=== PATIENT | female | born 1945 | race Caucasian/White ===

== ENCOUNTER 2016-10-21 19:47 | Inpatient (IN) | payer MEDICARE, BC ==
[~2016-10-21 19:47] MED LIST: ACETAMINOPHEN500 M5 PO; ADVAIR HFA 1151 PUFF INH; ALLOPURINOL100 MG; ALLOPURINOL300 M1 PO; ALPRAZOLAM0.25 M3 PO; ALPRAZOLAM0.25 MG PO; ALPRAZOLAM0.5 MG PO; AMILORIDE HCL5 M1 PO; AMIODARONE HCL200 M1 PO; AMITRIPTYLINE H25 M1 PO; AMITRIPTYLINE H25 MG; AMITRIPTYLINE H25 MG PO; ANTI-DIARRHEAL2 MG PO; ARTHX DS CAPSUL1 CAP; CALCIUM 600 W/V1 TAB; CALCIUM CITRAT1 EA18 PO; CALTRATE-600/VI1 TAB; CITRUCEL; CITRUCEL POWDE454 GM PO; CITRUCEL500 M1 PO; CLONIDINE HCL0.1 MG; COUMADIN2 MG; COUMADIN3 MG; COUMADIN4 MG PO; COZAAR50 MG; COZAAR50 MG PO; CPAP; DAZIDOX20 MG; GABAPENTIN300 M1 PO; GLIPIZIDE5 M2 PO; GLUCOSAMINE CH1 EAC1 PO; GLUCOSAMINE CHO1 TA1; GLUCOSAMINE-CH1 EA35 PO; ISOSORBIDE MONO60 MG; KLOR-CON 1010 ME1 PO; KLOR-CON M10 MEQ/TAB PO; LEVSIN0.125 MG; LOPERAMIDE2 M2 PO; LOPERAMIDE2 MG; LOPRESSOR25 MG/TA1 PO; LORTAB 2.5/5001 TAB; LOVENOX30 MG/0.3 SQ; MECLIZINE HCL25 MG; METHYLCELLULOSE; METOLAZONE5 M1 PO; METOPROLOL SUCC25 M1 PO; MORPHINE SU15 MG/TAB PO; MS CONTIN30 M1 PO; MS CONTIN30 MG PO; MULTIVITAMIN1 TAB PO; MULTIVITAMINS1 EAC6 PO; NEURONTIN300 MG; NIACIN50 PO; NIACIN500 M1 PO; OMEPRAZOLE20 M2 PO; OMEPRAZOLE20 MG PO; OMEPRAZOLE40 M2 PO; OXYCODONE HCL20 MG; PACERONE100 MG PO; PERCOCET 5MG/AP1 TA1 PO; POTASSIUM CHLO10 MEQ PO; POTASSIUM CHLO20 MEQ; PROTONIX40 MG; SERTRALINE HCL50 M4 PO; SERTRALINE HCL50 MG PO; SPIRONOLACTONE25 M2 PO; SPIRONOLACTONE50 MG; SULFAMETHOXAZO1 EAC5 PO; TAMBOCOR100 MG; TOPROL XL50 M1 PO; TORSEMIDE100 M1 PO; TORSEMIDE100 MG; TORSEMIDE100 MG PO; TYLENOL EXTRA500 MG PO; TYLENOL500 MG; TYLENOL500 MG PO; VENTOLIN HFA18 G2 IH; VERAPAMIL HCL240 M; VERAPAMIL HCL240 MG; VITAMIN D1000 UNI2 PO; WARFARIN SODIUM PO; ZOLOFT50 M1 PO
[2016-10-21] MEDS ORDERED: NORVASC2.5 M1 PO (20:37)
[2016-10-21] MEDS ORDERED: MUCINEX600 M1 PO (20:38)
[2016-10-21] MEDS ORDERED: NITROSTAT0.4 M1 SL (20:39)
[2016-10-21] MEDS ORDERED: CENTRUM SILVER1 EAC6 PO (20:40)
[2016-10-21] MEDS ORDERED: CLARITIN PO (20:41)
[2016-10-21] MEDS ORDERED: CYMBALTA60 M1 PO (20:41)
[2016-10-21] MEDS ORDERED: LOPERAMIDE2 M2 PO (20:42)
[2016-10-21] MEDS ORDERED: INCRUSE ELLI62.5 MCG INH (20:42)
[2016-10-21] MEDS ORDERED: AMIODARONE HCL200 M1 PO (20:43)
[2016-10-21] MEDS ORDERED: POTASSIUM CHLO10 ME2 PO (20:43)
[2016-10-21 21:34] LABS: ABG CO2 ARTERIAL 22 mmol/L (21-27); ARTERIAL BLD GAS O2 SATURATION 93 % (95-98); ARTERIAL BLOOD GAS PCO2 33 mmHg (32-45); ARTERIAL PO2 64 mmHg (70-100); BICARBONATE 21 mmol/L (21-28); BLOOD GAS BASE EXCESS -2 mM/L (-/+3); PH 7.42 Units (7.35-7.45)
[2016-10-21 23:53] LABS: BASO % 0.1 % (0-2); EOS % 0.4 % (0-7); EOSINOPHIL ABSOLUTE COUNT 0.1 tho/cmm (0.0-0.7); HCT-HEMATOCRIT 30.5 % (34.0-49.0); IMMATURE GRANULOCYTES ABSOLUTE 0.22 tho/cmm (0-0.03); IMMATURE GRANULOCYTES PERCENT 1.5 % (0-0.3); LYMPH % 3.3 % (20-45); LYMPH ABSOLUTE COUNT 0.5 tho/cmm (0.8-4.5); MCH (MEAN CORPUSCULAR HGB) 31.7 pg (28.0-32.0); MCHC MEAN CORPUSCULAR HGB CONC 32.8 % (32.0-36.0); MCV (MEAN CELL VOLUME) 96.8 fl (82.0-96.0); MONO % 3.2 % (0-12); MONOCYTE ABSOLUTE COUNT 0.5 tho/cmm (0.0-1.2); NEUTROPHIL ABSOLUTE COUNT 13.8 tho/cmm (1.6-8.0); NEUTROPHIL-AUTOMATED 13.8 tho/cmm (1.6-8.0); NEUTROPHILS % 91.5 % (40-80); PLATELET COUNT 93 tho/cmm (150-450); RED BLOOD COUNT 3.15 mil/cmm (4.00-5.20); RED CELL DISTRIBUTION WIDTH 17.2 % (12.4-16.4); WHITE BLOOD COUNT 15.1 tho/cmm (4.0-10.0)
[2016-10-22 00:13] LABS: ALB/GLOB RATIO 0.6 (0.8-2.0); ALBUMIN 2.2 g/dl (3.5-5.0); ALKALINE PHOSPHATASE 142 U/L (33-138); ALT/SGPT 38 U/L (12-78); ANION GAP 15 mmol/L (0-20); AST/SGOT 46 U/L (10-40); BILIRUBIN,TOTAL 1.1 mg/dl (0-1.5); BLOOD UREA NITROGEN 81 mg/dl (6-24); CALCIUM 7.3 mg/dl (8.5-10.5); CARBON DIOXIDE-VENOUS 23 mmol/L (22-32); CHLORIDE 102 mmol/l (96-110); CREATININE 2.75 mg/dl (0.50-1.10); GLUCOSE 180 mg/dL (70-110); POTASSIUM 4.8 mmol/L (3.7-5.1); SODIUM 135 mmol/L (135-145); eGFR VALUE FOR BLACK 19 mL/Min
[2016-10-22 00:17] LABS: OSMOLALITY 305 mOsm/kg (275-295); PROTHROMBIN TIME 110.1 SECONDS (9.0-13.6)
[2016-10-22 00:25] LABS: INR 8.9 INR (0.9-1.1)
[2016-10-22 00:31] LABS: PROCALCITONIN 37.41 ng/ml (0.05-0.09)
[2016-10-22 01:19] LABS: ABG CO2 ARTERIAL 19 mmol/L (21-27); ARTERIAL BLD GAS O2 SATURATION 91 % (95-98); ARTERIAL BLOOD GAS PCO2 29 mmHg (32-45); ARTERIAL PO2 62 mmHg (70-100); BICARBONATE 18 mmol/L (21-28); BLOOD GAS BASE EXCESS -5 mM/L (-/+3); PH 7.41 Units (7.35-7.45)
[2016-10-22 01:24] LABS: URINE SODIUM-RANDOM 45 mmol/L (20-110)
[2016-10-22 04:33] LABS: HCT-HEMATOCRIT 28.9 % (34.0-49.0); HGB-HEMOGLOBIN 9.4 gm/dl (12.0-15.5); MCH (MEAN CORPUSCULAR HGB) 31.5 pg (28.0-32.0); MCHC MEAN CORPUSCULAR HGB CONC 32.5 % (32.0-36.0); MEAN PLATELET VOLUME 11.1 cmc (9.4-12.4); NEUTROPHIL-AUTOMATED 14.7 tho/cmm (1.6-8.0); PLATELET COUNT 91 tho/cmm (150-450); RED BLOOD COUNT 2.98 mil/cmm (4.00-5.20); RED CELL DISTRIBUTION WIDTH 17.4 % (12.4-16.4); WHITE BLOOD COUNT 15.9 tho/cmm (4.0-10.0)
[2016-10-22 04:38] LABS: ALB/GLOB RATIO 0.8 (0.8-2.0); ALBUMIN 2.4 g/dl (3.5-5.0); ALKALINE PHOSPHATASE 134 U/L (33-138); ALT/SGPT 42 U/L (12-78); ANION GAP 17 mmol/L (0-20); AST/SGOT 48 U/L (10-40); BILIRUBIN,TOTAL 1.2 mg/dl (0-1.5); BLOOD UREA NITROGEN 82 mg/dl (6-24); CALCIUM 7.2 mg/dl (8.5-10.5); CARBON DIOXIDE-VENOUS 20 mmol/L (22-32); CHLORIDE 105 mmol/l (96-110); CREATININE 2.82 mg/dl (0.50-1.10); GLUCOSE 181 mg/dL (70-110); POTASSIUM 5.1 mmol/L (3.7-5.1); SODIUM 137 mmol/L (135-145); eGFR VALUE FOR BLACK 19 mL/Min
[2016-10-22 04:53] LABS: IRON BINDING CAPACITY 271 ug/dl (250-450)
[2016-10-22 04:54] LABS: FERRITIN 95 ng/ml (8-250)
[2016-10-22 05:05] LABS: C-REACTIVE PROTEIN 22.9 mg/dl (0-0.9)
[2016-10-22 05:27] LABS: PROTHROMBIN TIME 124.7 SECONDS (9.0-13.6)
[2016-10-22 05:33] LABS: IRON <10 ug/dl (37-170)
--- NOTE | 2016-10-22 06:50 | NUR ---
0355-LABS DRAWN PER PICC LINE. PATIENT REMAINS DROWSY, AWAKES TO VOICE. MEWS UP TO A 7 FROM A 4. REMAINS ON BIPAP @ 40%. INJECTION WAX MOLDER CALLED PER PROTOCOL. CCU RN RECS TX TO CCU. IMS NOTIFIED, WRITING ORDERS. AT BEDSIDE. PATIENT TRANSFERED TO ICU, BELONGINGS SENT W/PATIENT.
[2016-10-22 09:17] LABS: BAND % 21 % (0-20); BAND ABSOLUTE COUNT 3.3 tho/cmm (0-2.0)
[2016-10-22 15:54] LABS: INR 4.8 INR (0.9-1.1); PROTHROMBIN TIME 58.8 SECONDS (9.0-13.6)
[2016-10-23 05:09] LABS: BASO % 0.1 % (0-2); EOS % 0.3 % (0-7); EOSINOPHIL ABSOLUTE COUNT 0.1 tho/cmm (0.0-0.7); HCT-HEMATOCRIT 28.3 % (34.0-49.0); HGB-HEMOGLOBIN 9.5 gm/dl (12.0-15.5); IMMATURE GRANULOCYTES ABSOLUTE 0.38 tho/cmm (0-0.03); IMMATURE GRANULOCYTES PERCENT 2.5 % (0-0.3); LYMPH % 4.6 % (20-45); LYMPH ABSOLUTE COUNT 0.7 tho/cmm (0.8-4.5); MCH (MEAN CORPUSCULAR HGB) 31.9 pg (28.0-32.0); MCHC MEAN CORPUSCULAR HGB CONC 33.6 % (32.0-36.0); MEAN PLATELET VOLUME 11.5 cmc (9.4-12.4); MONO % 6.4 % (0-12); NEUTROPHIL ABSOLUTE COUNT 13.1 tho/cmm (1.6-8.0); NEUTROPHIL-AUTOMATED 13.1 tho/cmm (1.6-8.0); NEUTROPHILS % 86.1 % (40-80); PLATELET COUNT 96 tho/cmm (150-450); RED BLOOD COUNT 2.98 mil/cmm (4.00-5.20); RED CELL DISTRIBUTION WIDTH 17.2 % (12.4-16.4); WHITE BLOOD COUNT 15.2 tho/cmm (4.0-10.0)
[2016-10-23 05:23] LABS: INR 3.8 INR (0.9-1.1); PROTHROMBIN TIME 46.1 SECONDS (9.0-13.6)
[2016-10-23 05:27] LABS: ALBUMIN 2.3 g/dl (3.5-5.0); ANION GAP 17 mmol/L (0-20); BLOOD UREA NITROGEN 86 mg/dl (6-24); CALCIUM 8.6 mg/dl (8.5-10.5); CARBON DIOXIDE-VENOUS 21 mmol/L (22-32); CHLORIDE 102 mmol/l (96-110); GLUCOSE 169 mg/dL (70-110); PHOSPHOROUS 4.1 mg/dl (2.5-4.9); SODIUM 136 mmol/L (135-145); eGFR VALUE FOR BLACK 20 mL/Min
[2016-10-23 05:32] LABS: POTASSIUM 4.1 mmol/L (3.7-5.1)
[2016-10-23 14:56] LABS: ABG CO2 ARTERIAL 22 mmol/L (21-27); ARTERIAL BLD GAS O2 SATURATION 97 % (95-98); ARTERIAL BLOOD GAS PCO2 33 mmHg (32-45); ARTERIAL PO2 88 mmHg (70-100); BICARBONATE 21 mmol/L (21-28); BLOOD GAS BASE EXCESS -2 mM/L (-/+3); PH 7.43 Units (7.35-7.45)
[2016-10-24 04:39] LABS: BASO % 0.1 % (0-2); EOS % 0.4 % (0-7); EOSINOPHIL ABSOLUTE COUNT 0.1 tho/cmm (0.0-0.7); HCT-HEMATOCRIT 26.4 % (34.0-49.0); HGB-HEMOGLOBIN 8.9 gm/dl (12.0-15.5); IMMATURE GRANULOCYTES ABSOLUTE 0.05 tho/cmm (0-0.03); IMMATURE GRANULOCYTES PERCENT 0.4 % (0-0.3); LYMPH % 5.3 % (20-45); LYMPH ABSOLUTE COUNT 0.7 tho/cmm (0.8-4.5); MCH (MEAN CORPUSCULAR HGB) 31.4 pg (28.0-32.0); MCHC MEAN CORPUSCULAR HGB CONC 33.7 % (32.0-36.0); MCV (MEAN CELL VOLUME) 93.3 fl (82.0-96.0); MEAN PLATELET VOLUME 11.3 cmc (9.4-12.4); MONO % 6.6 % (0-12); MONOCYTE ABSOLUTE COUNT 0.9 tho/cmm (0.0-1.2); NEUTROPHIL ABSOLUTE COUNT 12.1 tho/cmm (1.6-8.0); NEUTROPHIL-AUTOMATED 12.1 tho/cmm (1.6-8.0); NEUTROPHILS % 87.2 % (40-80); PLATELET COUNT 85 tho/cmm (150-450); RED BLOOD COUNT 2.83 mil/cmm (4.00-5.20); WHITE BLOOD COUNT 13.9 tho/cmm (4.0-10.0)
[2016-10-24 04:44] LABS: INR 2.6 INR (0.9-1.1); PROTHROMBIN TIME 30.8 SECONDS (9.0-13.6)
[2016-10-24 04:59] LABS: ANION GAP 17 mmol/L (0-20); BLOOD UREA NITROGEN 86 mg/dl (6-24); CALCIUM 8.1 mg/dl (8.5-10.5); CARBON DIOXIDE-VENOUS 22 mmol/L (22-32); CHLORIDE 105 mmol/l (96-110); CREATININE 2.44 mg/dl (0.50-1.10); GLUCOSE 180 mg/dL (70-110); POTASSIUM 3.4 mmol/L (3.7-5.1); SODIUM 141 mmol/L (135-145); eGFR VALUE FOR BLACK 22 mL/Min
[2016-10-24 05:35] LABS: ABG CO2 ARTERIAL 21 mmol/L (21-27); ARTERIAL BLD GAS O2 SATURATION 95 % (95-98); ARTERIAL BLOOD GAS PCO2 28 mmHg (32-45); ARTERIAL PO2 73 mmHg (70-100); BICARBONATE 21 mmol/L (21-28); BLOOD GAS BASE EXCESS -2 mM/L (-/+3); PH 7.48 Units (7.35-7.45)
[2016-10-25 05:43] LABS: BASO % 0.1 % (0-2); EOS % 0.4 % (0-7); EOSINOPHIL ABSOLUTE COUNT 0.1 tho/cmm (0.0-0.7); HCT-HEMATOCRIT 25.7 % (34.0-49.0); HGB-HEMOGLOBIN 8.8 gm/dl (12.0-15.5); IMMATURE GRANULOCYTES ABSOLUTE 0.09 tho/cmm (0-0.03); IMMATURE GRANULOCYTES PERCENT 0.6 % (0-0.3); LYMPH % 6.4 % (20-45); MCH (MEAN CORPUSCULAR HGB) 31.8 pg (28.0-32.0); MCHC MEAN CORPUSCULAR HGB CONC 34.2 % (32.0-36.0); MCV (MEAN CELL VOLUME) 92.8 fl (82.0-96.0); MONOCYTE ABSOLUTE COUNT 1.3 tho/cmm (0.0-1.2); NEUTROPHIL ABSOLUTE COUNT 13.6 tho/cmm (1.6-8.0); NEUTROPHIL-AUTOMATED 13.6 tho/cmm (1.6-8.0); NEUTROPHILS % 84.5 % (40-80); PLATELET COUNT 95 tho/cmm (150-450); RED BLOOD COUNT 2.77 mil/cmm (4.00-5.20); RED CELL DISTRIBUTION WIDTH 16.9 % (12.4-16.4); WHITE BLOOD COUNT 16.1 tho/cmm (4.0-10.0)
[2016-10-25 05:49] LABS: ALB/GLOB RATIO 0.5 (0.8-2.0); ALBUMIN 1.8 g/dl (3.5-5.0); ALKALINE PHOSPHATASE 119 U/L (33-138); ALT/SGPT 93 U/L (12-78); ANION GAP 19 mmol/L (0-20); AST/SGOT 59 U/L (10-40); BILIRUBIN,TOTAL 1.7 mg/dl (0-1.5); BLOOD UREA NITROGEN 85 mg/dl (6-24); CARBON DIOXIDE-VENOUS 22 mmol/L (22-32); CHLORIDE 106 mmol/l (96-110); CREATININE 2.25 mg/dl (0.50-1.10); GLUCOSE 195 mg/dL (70-110); MAGNESIUM 1.6 mg/dl (1.8-2.6); PHOSPHOROUS 2.7 mg/dl (2.5-4.9); POTASSIUM 3.1 mmol/L (3.7-5.1); SODIUM 144 mmol/L (135-145); eGFR VALUE FOR BLACK 24 mL/Min
[2016-10-25 05:50] LABS: INR 1.9 INR (0.9-1.1); PROTHROMBIN TIME 22.6 SECONDS (9.0-13.6)
[2016-10-25 06:20] LABS: PROCALCITONIN 17.05 ng/ml (0.05-0.09)
[2016-10-26 04:38] LABS: BASO % 0.2 % (0-2); EOS % 0.5 % (0-7); EOSINOPHIL ABSOLUTE COUNT 0.1 tho/cmm (0.0-0.7); HGB-HEMOGLOBIN 8.9 gm/dl (12.0-15.5); IMMATURE GRANULOCYTES ABSOLUTE 0.41 tho/cmm (0-0.03); IMMATURE GRANULOCYTES PERCENT 2.2 % (0-0.3); LYMPH % 5.3 % (20-45); MCH (MEAN CORPUSCULAR HGB) 31.9 pg (28.0-32.0); MCHC MEAN CORPUSCULAR HGB CONC 34.2 % (32.0-36.0); MCV (MEAN CELL VOLUME) 93.2 fl (82.0-96.0); MEAN PLATELET VOLUME 11.7 cmc (9.4-12.4); MONO % 7.9 % (0-12); MONOCYTE ABSOLUTE COUNT 1.5 tho/cmm (0.0-1.2); NEUTROPHIL ABSOLUTE COUNT 15.7 tho/cmm (1.6-8.0); NEUTROPHIL-AUTOMATED 15.7 tho/cmm (1.6-8.0); NEUTROPHILS % 83.9 % (40-80); PLATELET COUNT 113 tho/cmm (150-450); RED BLOOD COUNT 2.79 mil/cmm (4.00-5.20); RED CELL DISTRIBUTION WIDTH 17.1 % (12.4-16.4); WHITE BLOOD COUNT 18.7 tho/cmm (4.0-10.0)
[2016-10-26 04:41] LABS: INR 1.9 INR (0.9-1.1); PROTHROMBIN TIME 22.2 SECONDS (9.0-13.6)
[2016-10-26 05:03] LABS: ALB/GLOB RATIO 0.5 (0.8-2.0); ALBUMIN 1.8 g/dl (3.5-5.0); ALKALINE PHOSPHATASE 123 U/L (33-138); ALT/SGPT 79 U/L (12-78); BILIRUBIN,TOTAL 1.5 mg/dl (0-1.5); BLOOD UREA NITROGEN 73 mg/dl (6-24); CALCIUM 7.8 mg/dl (8.5-10.5); CARBON DIOXIDE-VENOUS 23 mmol/L (22-32); CHLORIDE 106 mmol/l (96-110); CREATININE 1.95 mg/dl (0.50-1.10); GLUCOSE 281 mg/dL (70-110); PHOSPHOROUS 2.6 mg/dl (2.5-4.9); SODIUM 141 mmol/L (135-145); eGFR VALUE FOR BLACK 29 mL/Min
[2016-10-26 05:10] LABS: ANION GAP 15 mmol/L (0-20); AST/SGOT 48 U/L (10-40); MAGNESIUM 1.8 mg/dl (1.8-2.6); POTASSIUM 2.9 mmol/L (3.7-5.1); PREALBUMIN 8.5 mg/dl (20.0-40.0)
[2016-10-26 07:57] LABS: ABG CO2 ARTERIAL 22 mmol/L (21-27); ARTERIAL BLD GAS O2 SATURATION 92 % (95-98); ARTERIAL BLOOD GAS PCO2 28 mmHg (32-45); ARTERIAL PO2 61 mmHg (70-100); BICARBONATE 21 mmol/L (21-28); BLOOD GAS BASE EXCESS -2 mM/L (-/+3); PH 7.48 Units (7.35-7.45)
[2016-10-26 12:36] LABS: ARTERIAL BLD GAS O2 SATURATION 91 % (95-98); ARTERIAL BLOOD GAS PCO2 25 mmHg (32-45); ARTERIAL PO2 54 mmHg (70-100)
[2016-10-26 12:37] LABS: ABG CO2 ARTERIAL 21 mmol/L (21-27); BICARBONATE 20 mmol/L (21-28); BLOOD GAS BASE EXCESS -2 mM/L (-/+3)
[2016-10-26 13:50] LABS: BAL APPEARANCE CLOUDY (CLEAR); BAL COLOR PINK (COLORLESS)
[2016-10-26 14:09] LABS: BAL EOSINOPHILS 1 %; BAL LYMPHOCYTES 5 %; BAL NEUTROPHILS 63 %
[2016-10-26 15:08] LABS: ABG CO2 ARTERIAL 21 mmol/L (21-27); ARTERIAL BLD GAS O2 SATURATION 100 % (95-98); ARTERIAL BLOOD GAS PCO2 31 mmHg (32-45); ARTERIAL PO2 206 mmHg (70-100); BICARBONATE 20 mmol/L (21-28); BLOOD GAS BASE EXCESS -3 mM/L (-/+3); PH 7.43 Units (7.35-7.45)
[2016-10-27 05:25] LABS: INR 1.6 INR (0.9-1.1); PROTHROMBIN TIME 18.3 SECONDS (9.0-13.6)
[2016-10-27 05:25] LABS: ABG CO2 ARTERIAL 18 mmol/L (21-27); ARTERIAL BLD GAS O2 SATURATION 99 % (95-98); ARTERIAL BLOOD GAS PCO2 24 mmHg (32-45); ARTERIAL PO2 131 mmHg (70-100); BICARBONATE 18 mmol/L (21-28); BLOOD GAS BASE EXCESS -5 mM/L (-/+3); PH 7.48 Units (7.35-7.45)
[2016-10-27 05:28] LABS: BASO % 0.1 % (0-2); EOSINOPHIL ABSOLUTE COUNT 0.5 tho/cmm (0.0-0.7); HCT-HEMATOCRIT 26.3 % (34.0-49.0); HGB-HEMOGLOBIN 8.8 gm/dl (12.0-15.5); IMMATURE GRANULOCYTES ABSOLUTE 0.65 tho/cmm (0-0.03); IMMATURE GRANULOCYTES PERCENT 4.3 % (0-0.3); LYMPH % 7.4 % (20-45); LYMPH ABSOLUTE COUNT 1.1 tho/cmm (0.8-4.5); MCH (MEAN CORPUSCULAR HGB) 31.3 pg (28.0-32.0); MCHC MEAN CORPUSCULAR HGB CONC 33.5 % (32.0-36.0); MCV (MEAN CELL VOLUME) 93.6 fl (82.0-96.0); MEAN PLATELET VOLUME 12.3 cmc (9.4-12.4); MONO % 7.8 % (0-12); MONOCYTE ABSOLUTE COUNT 1.2 tho/cmm (0.0-1.2); NEUTROPHIL ABSOLUTE COUNT 11.6 tho/cmm (1.6-8.0); NEUTROPHIL-AUTOMATED 11.6 tho/cmm (1.6-8.0); NEUTROPHILS % 77.4 % (40-80); PLATELET COUNT 114 tho/cmm (150-450); RED BLOOD COUNT 2.81 mil/cmm (4.00-5.20); RED CELL DISTRIBUTION WIDTH 17.1 % (12.4-16.4)
[2016-10-27 05:34] LABS: ALB/GLOB RATIO 0.4 (0.8-2.0); ALBUMIN 1.7 g/dl (3.5-5.0); ALKALINE PHOSPHATASE 119 U/L (33-138); ALT/SGPT 56 U/L (12-78); ANION GAP 15 mmol/L (0-20); AST/SGOT 26 U/L (10-40); BILIRUBIN,TOTAL 1.6 mg/dl (0-1.5); BLOOD UREA NITROGEN 74 mg/dl (6-24); CALCIUM 7.9 mg/dl (8.5-10.5); CARBON DIOXIDE-VENOUS 20 mmol/L (22-32); CHLORIDE 108 mmol/l (96-110); GLUCOSE 402 mg/dL (70-110); PHOSPHOROUS 2.9 mg/dl (2.5-4.9); POTASSIUM 4.2 mmol/L (3.7-5.1); SODIUM 139 mmol/L (135-145); eGFR VALUE FOR BLACK 30 mL/Min
[2016-10-28 04:16] LABS: INR 1.5 INR (0.9-1.1); PROTHROMBIN TIME 17.4 SECONDS (9.0-13.6)
[2016-10-28 04:22] LABS: ALBUMIN 1.7 g/dl (3.5-5.0); ANION GAP 17 mmol/L (0-20); BLOOD UREA NITROGEN 77 mg/dl (6-24); CARBON DIOXIDE-VENOUS 20 mmol/L (22-32); CHLORIDE 106 mmol/l (96-110); CREATININE 1.78 mg/dl (0.50-1.10); MAGNESIUM 2.1 mg/dl (1.8-2.6); PHOSPHOROUS 3.2 mg/dl (2.5-4.9); POTASSIUM 3.8 mmol/L (3.7-5.1); SODIUM 139 mmol/L (135-145); eGFR VALUE FOR BLACK 32 mL/Min
[2016-10-28 04:29] LABS: GLUCOSE 125 mg/dL (70-110)
[2016-10-28 05:25] LABS: ABG CO2 ARTERIAL 19 mmol/L (21-27); ARTERIAL BLD GAS O2 SATURATION 98 % (95-98); ARTERIAL BLOOD GAS PCO2 27 mmHg (32-45); ARTERIAL PO2 98 mmHg (70-100); BICARBONATE 18 mmol/L (21-28); BLOOD GAS BASE EXCESS -5 mM/L (-/+3); PH 7.44 Units (7.35-7.45)
[2016-10-28 16:37] LABS: HCT-HEMATOCRIT 25.2 % (34.0-49.0); HGB-HEMOGLOBIN 8.4 gm/dl (12.0-15.5); MCH (MEAN CORPUSCULAR HGB) 32.1 pg (28.0-32.0); MCHC MEAN CORPUSCULAR HGB CONC 33.3 % (32.0-36.0); MCV (MEAN CELL VOLUME) 96.2 fl (82.0-96.0); MEAN PLATELET VOLUME 12.2 cmc (9.4-12.4); NEUTROPHIL-AUTOMATED 13.1 tho/cmm (1.6-8.0); PLATELET COUNT 150 tho/cmm (150-450); RED BLOOD COUNT 2.62 mil/cmm (4.00-5.20); RED CELL DISTRIBUTION WIDTH 17.9 % (12.4-16.4); WHITE BLOOD COUNT 18.1 tho/cmm (4.0-10.0)
[2016-10-28 16:55] LABS: BAND % 4 % (0-20); BAND ABSOLUTE COUNT 0.7 tho/cmm (0-2.0); EOSINOPHIL % 3 % (0-7)
[2016-10-29 04:46] LABS: HCT-HEMATOCRIT 25.8 % (34.0-49.0); HGB-HEMOGLOBIN 8.4 gm/dl (12.0-15.5); MCH (MEAN CORPUSCULAR HGB) 31.6 pg (28.0-32.0); MCHC MEAN CORPUSCULAR HGB CONC 32.6 % (32.0-36.0); NEUTROPHIL-AUTOMATED 13.1 tho/cmm (1.6-8.0); PLATELET COUNT 176 tho/cmm (150-450); RED BLOOD COUNT 2.66 mil/cmm (4.00-5.20); RED CELL DISTRIBUTION WIDTH 18.3 % (12.4-16.4); WHITE BLOOD COUNT 17.9 tho/cmm (4.0-10.0)
[2016-10-29 05:04] LABS: ANION GAP 15 mmol/L (0-20); BLOOD UREA NITROGEN 74 mg/dl (6-24); CARBON DIOXIDE-VENOUS 21 mmol/L (22-32); CHLORIDE 109 mmol/l (96-110); CREATININE 1.59 mg/dl (0.50-1.10); GLUCOSE 157 mg/dL (70-110); MAGNESIUM 2.4 mg/dl (1.8-2.6); PHOSPHOROUS 4.9 mg/dl (2.5-4.9); POTASSIUM 3.9 mmol/L (3.7-5.1); SODIUM 141 mmol/L (135-145); eGFR VALUE FOR BLACK 37 mL/Min
[2016-10-29 05:05] LABS: INR 1.4 INR (0.9-1.1); PROTHROMBIN TIME 15.9 SECONDS (9.0-13.6)
[2016-10-29 05:42] LABS: ABG CO2 ARTERIAL 19 mmol/L (21-27); ARTERIAL BLD GAS O2 SATURATION 96 % (95-98); ARTERIAL PO2 90 mmHg (70-100); BICARBONATE 18 mmol/L (21-28); BLOOD GAS BASE EXCESS -6 mM/L (-/+3)
[2016-10-29 05:43] LABS: ARTERIAL BLOOD GAS PCO2 33 mmHg (32-45); PH 7.36 Units (7.35-7.45)
[2016-10-29 06:00] LABS: PROCALCITONIN 2.57 ng/ml (0.05-0.09)
[2016-10-29 06:52] LABS: BAND % 32 % (0-20); BAND ABSOLUTE COUNT 0.5 tho/cmm (0-2.0); EOSINOPHIL % 2 % (0-7)
[2016-10-29 14:48] LABS: ABG CO2 ARTERIAL 22 mmol/L (21-27); ARTERIAL BLD GAS O2 SATURATION 98 % (95-98); ARTERIAL BLOOD GAS PCO2 30 mmHg (32-45); ARTERIAL PO2 97 mmHg (70-100); BICARBONATE 21 mmol/L (21-28); BLOOD GAS BASE EXCESS -2 mM/L (-/+3); PH 7.46 Units (7.35-7.45)
[2016-10-30 04:40] LABS: INR 1.3 INR (0.9-1.1); PROTHROMBIN TIME 15.3 SECONDS (9.0-13.6)
[2016-10-30 04:41] LABS: ANION GAP 14 mmol/L (0-20); BLOOD UREA NITROGEN 78 mg/dl (6-24); CARBON DIOXIDE-VENOUS 24 mmol/L (22-32); CHLORIDE 107 mmol/l (96-110); CREATININE 1.63 mg/dl (0.50-1.10); GLUCOSE 163 mg/dL (70-110); MAGNESIUM 2.5 mg/dl (1.8-2.6); PHOSPHOROUS 4.9 mg/dl (2.5-4.9); POTASSIUM 3.4 mmol/L (3.7-5.1); SODIUM 142 mmol/L (135-145); eGFR VALUE FOR BLACK 36 mL/Min
[2016-10-30 05:35] LABS: ABG CO2 ARTERIAL 23 mmol/L (21-27); ARTERIAL BLD GAS O2 SATURATION 98 % (95-98); ARTERIAL BLOOD GAS PCO2 31 mmHg (32-45); ARTERIAL PO2 107 mmHg (70-100); BICARBONATE 22 mmol/L (21-28); BLOOD GAS BASE EXCESS -1 mM/L (-/+3); PH 7.47 Units (7.35-7.45)
[2016-10-30 13:42] LABS: HCT-HEMATOCRIT 26.2 % (34.0-49.0); HGB-HEMOGLOBIN 8.4 gm/dl (12.0-15.5); MCH (MEAN CORPUSCULAR HGB) 31.7 pg (28.0-32.0); MCHC MEAN CORPUSCULAR HGB CONC 32.1 % (32.0-36.0); MCV (MEAN CELL VOLUME) 98.9 fl (82.0-96.0); MEAN PLATELET VOLUME 11.6 cmc (9.4-12.4); NEUTROPHIL-AUTOMATED 9.7 tho/cmm (1.6-8.0); PLATELET COUNT 180 tho/cmm (150-450); RED BLOOD COUNT 2.65 mil/cmm (4.00-5.20); RED CELL DISTRIBUTION WIDTH 19.2 % (12.4-16.4); WHITE BLOOD COUNT 13.7 tho/cmm (4.0-10.0)
[2016-10-30 14:28] LABS: BAND % 11 % (0-20); BAND ABSOLUTE COUNT 1.5 tho/cmm (0-2.0); EOSINOPHIL % 1 % (0-7)
[2016-10-31 03:36] LABS: INR 1.2 INR (0.9-1.1); PROTHROMBIN TIME 13.9 SECONDS (9.0-13.6)
[2016-10-31 03:42] LABS: BASO % 0.3 % (0-2); EOS % 2.9 % (0-7); EOSINOPHIL ABSOLUTE COUNT 0.4 tho/cmm (0.0-0.7); HCT-HEMATOCRIT 25.8 % (34.0-49.0); HGB-HEMOGLOBIN 8.4 gm/dl (12.0-15.5); IMMATURE GRANULOCYTES PERCENT 7.2 % (0-0.3); LYMPH % 8.7 % (20-45); LYMPH ABSOLUTE COUNT 1.1 tho/cmm (0.8-4.5); MCH (MEAN CORPUSCULAR HGB) 32.4 pg (28.0-32.0); MCHC MEAN CORPUSCULAR HGB CONC 32.6 % (32.0-36.0); MCV (MEAN CELL VOLUME) 99.6 fl (82.0-96.0); MEAN PLATELET VOLUME 11.3 cmc (9.4-12.4); MONO % 8.6 % (0-12); MONOCYTE ABSOLUTE COUNT 1.1 tho/cmm (0.0-1.2); NEUTROPHILS % 72.3 % (40-80); PLATELET COUNT 180 tho/cmm (150-450); RED BLOOD COUNT 2.59 mil/cmm (4.00-5.20); RED CELL DISTRIBUTION WIDTH 19.5 % (12.4-16.4); WHITE BLOOD COUNT 12.4 tho/cmm (4.0-10.0)
[2016-10-31 03:43] LABS: ANION GAP 15 mmol/L (0-20); BLOOD UREA NITROGEN 70 mg/dl (6-24); CALCIUM 7.9 mg/dl (8.5-10.5); CARBON DIOXIDE-VENOUS 24 mmol/L (22-32); CHLORIDE 111 mmol/l (96-110); CREATININE 1.67 mg/dl (0.50-1.10); GLUCOSE 144 mg/dL (70-110); MAGNESIUM 2.6 mg/dl (1.8-2.6); PHOSPHOROUS 5.2 mg/dl (2.5-4.9); SODIUM 146 mmol/L (135-145); eGFR VALUE FOR BLACK 35 mL/Min
[2016-11-01 05:02] LABS: BASO % 0.3 % (0-2); EOS % 2.6 % (0-7); EOSINOPHIL ABSOLUTE COUNT 0.3 tho/cmm (0.0-0.7); HCT-HEMATOCRIT 27.8 % (34.0-49.0); HGB-HEMOGLOBIN 8.7 gm/dl (12.0-15.5); IMMATURE GRANULOCYTES ABSOLUTE 0.42 tho/cmm (0-0.03); IMMATURE GRANULOCYTES PERCENT 3.9 % (0-0.3); LYMPH % 10.3 % (20-45); LYMPH ABSOLUTE COUNT 1.1 tho/cmm (0.8-4.5); MCH (MEAN CORPUSCULAR HGB) 31.8 pg (28.0-32.0); MCHC MEAN CORPUSCULAR HGB CONC 31.3 % (32.0-36.0); MCV (MEAN CELL VOLUME) 101.5 fl (82.0-96.0); MEAN PLATELET VOLUME 11.7 cmc (9.4-12.4); MONO % 9.9 % (0-12); MONOCYTE ABSOLUTE COUNT 1.1 tho/cmm (0.0-1.2); NEUTROPHIL ABSOLUTE COUNT 7.9 tho/cmm (1.6-8.0); NEUTROPHIL-AUTOMATED 7.9 tho/cmm (1.6-8.0); PLATELET COUNT 212 tho/cmm (150-450); RED BLOOD COUNT 2.74 mil/cmm (4.00-5.20); RED CELL DISTRIBUTION WIDTH 19.9 % (12.4-16.4); WHITE BLOOD COUNT 10.8 tho/cmm (4.0-10.0)
[2016-11-01 05:08] LABS: INR 1.2 INR (0.9-1.1); PROTHROMBIN TIME 13.4 SECONDS (9.0-13.6)
[2016-11-01 05:12] LABS: ABG CO2 ARTERIAL 24 mmol/L (21-27); ARTERIAL BLD GAS O2 SATURATION 93 % (95-98); ARTERIAL BLOOD GAS PCO2 35 mmHg (32-45); BICARBONATE 23 mmol/L (21-28); BLOOD GAS BASE EXCESS -1 mM/L (-/+3); PH 7.43 Units (7.35-7.45)
[2016-11-01 05:15] LABS: ARTERIAL PO2 69 mmHg (70-100)
[2016-11-01 05:17] LABS: ANION GAP 12 mmol/L (0-20); BLOOD UREA NITROGEN 60 mg/dl (6-24); CALCIUM 7.9 mg/dl (8.5-10.5); CARBON DIOXIDE-VENOUS 26 mmol/L (22-32); CHLORIDE 113 mmol/l (96-110); CREATININE 1.38 mg/dl (0.50-1.10); GLUCOSE 121 mg/dL (70-110); MAGNESIUM 2.6 mg/dl (1.8-2.6); PHOSPHOROUS 4.3 mg/dl (2.5-4.9); POTASSIUM 3.8 mmol/L (3.7-5.1); SODIUM 147 mmol/L (135-145); eGFR VALUE FOR BLACK 44 mL/Min
[2016-11-01 18:54] LABS: BASO % 0.2 % (0-2); EOS % 1.3 % (0-7); EOSINOPHIL ABSOLUTE COUNT 0.2 tho/cmm (0.0-0.7); HGB-HEMOGLOBIN 6.7 gm/dl (12.0-15.5); IMMATURE GRANULOCYTES ABSOLUTE 0.28 tho/cmm (0-0.03); IMMATURE GRANULOCYTES PERCENT 2.2 % (0-0.3); LYMPH % 13.1 % (20-45); LYMPH ABSOLUTE COUNT 1.7 tho/cmm (0.8-4.5); MCH (MEAN CORPUSCULAR HGB) 32.1 pg (28.0-32.0); MCV (MEAN CELL VOLUME) 102.9 fl (82.0-96.0); MEAN PLATELET VOLUME 11.6 cmc (9.4-12.4); MONO % 7.2 % (0-12); MONOCYTE ABSOLUTE COUNT 0.9 tho/cmm (0.0-1.2); NEUTROPHIL ABSOLUTE COUNT 9.7 tho/cmm (1.6-8.0); NEUTROPHIL-AUTOMATED 9.7 tho/cmm (1.6-8.0); PLATELET COUNT 215 tho/cmm (150-450); RED BLOOD COUNT 2.09 mil/cmm (4.00-5.20); RED CELL DISTRIBUTION WIDTH 20.2 % (12.4-16.4); WHITE BLOOD COUNT 12.8 tho/cmm (4.0-10.0)
[2016-11-01 18:59] LABS: HCT-HEMATOCRIT 21.5 % (34.0-49.0); MCHC MEAN CORPUSCULAR HGB CONC 31.2 % (32.0-36.0)
[2016-11-01 19:43] LABS: ARTERIAL BLD GAS O2 SATURATION 98 % (95-98); BLOOD GAS BASE EXCESS -14 mM/L (-/+3); PH 7.36 Units (7.35-7.45)
[2016-11-01 19:44] LABS: ABG CO2 ARTERIAL 11 mmol/L (21-27); ARTERIAL PO2 116 mmHg (70-100); BICARBONATE 11 mmol/L (21-28)
[2016-11-01 19:45] LABS: ARTERIAL BLOOD GAS PCO2 19 mmHg (32-45)
--- NOTE | 2016-11-01 19:52 | NUR ---
PT IS INCREASINGLY GETTING MORE AGITATED AND C/O INCREASED ABD PAIN BETWEEN 0355-1543. PT CONTINUES TO HAVE LOOSE, ORANGE COLORED STOOLS. PT'S ABD IS OBESE, DISTENDED. BOWEL SOUNDS ARE HYPOACTIVE X4. 4MG ZOFRAN GIVEN AT 1630. PT CONTINUES TO C/O ABD PAIN, BACK PAIN. ACADEMIC TUTOR ALICIA NOTIFIED. SENT STOOL FOR CDIFF. NOTIFIED IMS, DR KAHN WILL SEE PT AT BEDSIDE. ORDERS RECEIVED FOR STAT KUB, CBC, CMP, LACTIC ACID, PHOS, MG. 500CC NACL BOLUS INITIATED. PT IS HYPOTENSIVE SBP 60-80. REPORT GIVEN TO ACADEMIC TUTOR NICOLE AND ONCOMING NIGHT NURSE TWYLA UPDATED ON PT STATUS. TWYLA WILL TAKE OVER PT'S CARE.
[2016-11-01 19:55] LABS: ALB/GLOB RATIO 0.5 (0.8-2.0); ALBUMIN 1.5 g/dl (3.5-5.0); ALKALINE PHOSPHATASE 116 U/L (33-138); ALT/SGPT 20 U/L (12-78); AST/SGOT 26 U/L (10-40); BILIRUBIN,TOTAL 0.6 mg/dl (0-1.5); BLOOD UREA NITROGEN 53 mg/dl (6-24); CALCIUM 7.2 mg/dl (8.5-10.5); CARBON DIOXIDE-VENOUS 14 mmol/L (22-32); CHLORIDE 111 mmol/l (96-110); CREATININE 1.65 mg/dl (0.50-1.10); MAGNESIUM 2.7 mg/dl (1.8-2.6); SODIUM 141 mmol/L (135-145); eGFR VALUE FOR BLACK 36 mL/Min
[2016-11-01 19:59] LABS: ANION GAP 21 mmol/L (0-20); GLUCOSE 371 mg/dL (70-110); POTASSIUM 4.9 mmol/L (3.7-5.1)
== END 2016-11-01 22:50 | disposition expired | DRG 853 ==
LOC: PCUA 19:47 → CCU 10-22 04:45
PROVIDERS: Family Medicine; Internal Medicine; Internal Medicine Critical Care Medicine; Internal Medicine Nephrology; Internal Medicine Pulmonary Disease; Registered Nurse; ADMIT Internal Medicine
PROC: 5A1945Z Respiratory Ventilation, 24-96 Consecutive Hours (ICD-10-PCS; 2016-10-21)
PROC: 0B9J8ZX Drainage of Left Lower Lung Lobe, Via Natural or Artificial Opening Endoscopic, Diagnostic (ICD-10-PCS; 2016-10-21)
PROC: 02HV33Z Insertion of Infusion Device into Superior Vena Cava, Percutaneous Approach (ICD-10-PCS; 2016-10-21)
PROC: 0B9C8ZX Drainage of Right Upper Lung Lobe, Via Natural or Artificial Opening Endoscopic, Diagnostic (ICD-10-PCS; principal; 2016-10-26)
PROC: 0CJS8ZZ Inspection of Larynx, Via Natural or Artificial Opening Endoscopic (ICD-10-PCS; 2016-10-26)
PROC: 0BH17EZ Insertion of Endotracheal Airway into Trachea, Via Natural or Artificial Opening (ICD-10-PCS; 2016-10-26)
DX: A41.51 Sepsis due to Escherichia coli [E. coli] (principal); J18.9 Pneumonia, unspecified organism; J96.01 Acute respiratory failure with hypoxia; R65.21 Severe sepsis with septic shock; N17.9 Acute kidney failure, unspecified; G93.40 Encephalopathy, unspecified; E87.2 Acidosis; I50.30 Unspecified diastolic (congestive) heart failure; K56.7 Ileus, unspecified; N39.0 Urinary tract infection, site not specified; E87.1 Hypo-osmolality and hyponatremia; Z95.2 Presence of prosthetic heart valve; I48.0 Paroxysmal atrial fibrillation; R13.10 Dysphagia, unspecified; E11.9 Type 2 diabetes mellitus without complications; K21.9 Gastro-esophageal reflux disease without esophagitis; G47.33 Obstructive sleep apnea (adult) (pediatric); M10.9 Gout, unspecified; M81.0 Age-related osteoporosis without current pathological fracture; I12.9 Hypertensive chronic kidney disease with stage 1 through stage 4 chronic kidney disease, or unspecified chronic kidney disease; N18.3 Chronic kidney disease, stage 3 (moderate); E78.5 Hyperlipidemia, unspecified; F32.9 Major depressive disorder, single episode, unspecified; Z79.01 Long term (current) use of anticoagulants; J44.9 Chronic obstructive pulmonary disease, unspecified; Z66 Do not resuscitate; I25.10 Atherosclerotic heart disease of native coronary artery without angina pectoris; Z95.0 Presence of cardiac pacemaker; D64.9 Anemia, unspecified
CPT/HCPCS: C1751; C8929; C9113; J0171; J0282; J1335; J1650; J1815; J1940; J1956; J2060; J2250; J2270; J2405; J2704; J2997; J3010; J3370; J3430; J3475; J3480; J7030; J7040; J7050; P9016; P9017; P9045